=== PATIENT | male | born 1960 | race Caucasian/White ===

== ENCOUNTER 2016-09-28 12:59 | Emergency (ER) | payer SELFPAY ==
[2016-09-28 13:09] VITALS: TEMP 97.6; O2SAT 97
[2016-09-28] MEDS ORDERED: DiphenhydrAMINE 50 mg/ml Inj IVP ONE (13:12)
[2016-09-28] MEDS ORDERED: Sodium Chloride 0.9% 1,000 ML IV SCH (13:15)
--- NOTE | 2016-09-28 13:30 | ED PDOC ---
Arrival/HPI - General Chief Complaint: Allergic Reaction Time Seen by Provider: 09/28/16 13:06 Historian: Patient - History of Present Illness Narrative History of Present Illness (Text): 09/28/16 13:27 Patient is a 56 yo male, past medical history of hypertension taking Enalapril, presents to ED with itching, flushed sensation, abdominal cramping that developed 1-2 hours after taking Augmentin at 0900 this morning. He denies any known prior allergies to any food or medication. States that he had "flu symptoms" that started yesterday including cough, cold, congestion, bodyaches and he took an Augmentin pill "[place] I had from my [place]". He denies any chest pain or shortness of breath. Denies lip or tongue or facial swelling. Denies numbness or weakness. Denies headaches or visual symptoms. Denies calf pain or swelling. Time/Duration: Prior to Arrival Symptom Onset: Sudden Past Medical History - Infectious Disease Hx of Infectious Diseases: None - Cardiac Hx Hypertension: Yes - Psychiatric Hx Substance Use: No - Surgical History Hx Cholecystectomy: Yes - Anesthesia Hx Anesthesia: Yes Hx Anesthesia Reactions: No Family/Social History Family/Social History: Unknown Family HX Smoking Status: Current Some Days Smoker Hx Alcohol Use: Yes Frequency of alcohol use: Socially Hx Substance Use: No Allergies/Home Meds Allergies/Adverse Reactions: Allergies amoxicillin trihydrate [From Augmentin] Allergy (Verified 09/28/16 13:06) RASH potassium clavulanate [From Augmentin] Allergy (Verified 09/28/16 13:06) RASH Home Medications: Home Meds Medication Instructions Recorded Confirmed Enalapril Maleate [Vasotec] 10 mg PO DAILY 09/28/16 09/28/16 [id number] 1 tab PO DAILY 09/28/16 09/28/16 Review of Systems - Review of Systems Constitutional: Fatigue. absent: Fevers Eyes: absent: Vision Changes, Photophobia, Eye Pain ENT: absent: Hearing Changes, Sore Throat, Rhinorrhea, Epistaxis, Sinus Congestion Respiratory: absent: SOB, Cough, Wheezing Cardiovascular: absent: Chest Pain, Palpitations, GEE Gastrointestinal: Nausea, Other (abdominal cramping). absent: Abdominal Pain Genitourinary Male: absent: Dysuria, Frequency Musculoskeletal: absent: Back Pain Skin: Rash, Pruritis. absent: Skin Lesions Neurological: absent: Headache, Dizziness, Focal Weakness Endocrine: absent: Polyuria Hemo/Lymphatic: absent: Easy Bleeding Physical Exam - Physical Exam Narrative Physical Exam (Text): Head: Atraumatic. Normocephalic. Eyes: PERRL. EOMI. Conjunctivae are not pale. ENT: Mucous membranes are moist and intact. Oropharynx is clear and symmetric. No lip or tongue swelling, no angioedema, no drooling, no stridor. Neck: Supple. Full ROM. No JVD. No lymphadenopathy. Cardiovascular: Regular rate. Regular rhythm. No murmurs, rubs, or gallops. Distal pulses are 2+ and symmetric. Pulmonary/Chest: No evidence of respiratory distress. Clear to auscultation bilaterally. No wheezing, rales or rhonchi. Abdominal: Soft and non-distended. There is no tenderness. No rebound, guarding, or rigidity. No organomegaly. Good bowel sounds. Back: No CVA tenderness. Extremities: No edema. No cyanosis. No clubbing. Full range of motion in all extremities. No calf tenderness. Skin: Flushed skin with generalized urticaria. No streaking or vesicles. Neurological: Alert, awake, and oriented to person, place, time, and situation. Normal speech. Motor and sensory exam intact. Psychiatric: Alert, oriented. No depression. 09/28/16 13:40 Vital Signs Reviewed: Yes Vital Signs Temp Pulse Resp BP Pulse Ox 09/28/16 14:14 76 16 108/74 97 09/28/16 13:00 97.6 F 85 18 111/65 97 Temperature: Afebrile Respiratory Rate: Tachypneic Appearance: Positive for: Uncomfortable Pain Distress: Mild Mental Status: Positive for: Alert and Oriented X 3 Medical Decision Making ED Course and Treatment: Patient seen and evaluated immediately upon arrival. There is no stridor or respiratory distress. He denies any prior history of allergic reaction or anaphylaxis. On exam he has no hypotension, no abdominal pain with serial exams. He did not take any other medication prior to arrival. States he took Augmentin this am and symptoms started 1-2 hours afterwards. Given flushing, I recommended labs as he also complained of "flu type symptoms" yesterday. In ED, he is afebrile with no headache or meningeal signs. IV bendaryl, solumedrol, pepcid ordered. Patient observed in ED and on re-evaluation his rash and urticaria resolved. No angioedema or respiratory symptoms noted. Stressed to patient need to use WILMA inhibitor with caution, although symptoms today occurred after Augmentin and he has been taking his BP meds for several years. He continues to refuse blood tests. Re-exam, no fever, rash resolved, asymptomatic. Will d/c with prednisone, advised reassessment for any return of symptoms. - Lab Interpretations Lab Results: Lab Results 09/28/16 13:30: Influenza Typ A,B (EIA) Negative for flu a/b - Medication Orders Current Medication Orders: Discontinued Medications Diphenhydramine HCl (Benadryl) 25 mg IVP ONCE ONE Stop: 09/28/16 13:13 Last Admin: 09/28/16 13:19 Dose: 25 MG IVP Administration Document 09/28/16 13:19 HP (Rec: 09/28/16 13:19 [id number]) Charges for Administration # of IVP Administrations 1 Famotidine (Pepcid) 20 mg IVP STAT STA Stop: 09/28/16 13:13 Last Admin: 09/28/16 13:19 Dose: 20 MG IVP Administration Document 09/28/16 13:19 HP (Rec: 09/28/16 13:19 HP [id number]) Charges for Administration # of IVP Administrations 1 Sodium Chloride (Sodium Chloride 0.9%) 1,000 mls @ 100 mls/hr IV .Q10H ANA Last Admin: 09/28/16 13:19 Dose: 100 MLS/HR eMAR Start Stop Document 09/28/16 13:19 HP (Rec: 09/28/16 13:20 HP [id number]) Intravenous Solution Start Date 09/28/16 Start Time 13:19 End Date 09/28/16 End time 20:00 Total Infusion Time 401 Methylprednisolone (Solu-Medrol) 125 mg IVP STAT STA Stop: 09/28/16 13:13 Last Admin: 09/28/16 13:19 Dose: 125 MG IVP Administration Document 09/28/16 13:19 HP (Rec: 09/28/16 13:19 HP [id number]) Charges for Administration # of IVP Administrations 1 Disposition/Present on Arrival - Present on Arrival Any Indicators Present on Arrival: No History of DVT/PE: No History of Uncontrolled Diabetes: No Urinary Catheter: No History of Decub. Ulcer: No History Surgical Site Infection Following: None - Disposition Have Diagnosis and Disposition been Completed?: Yes Diagnosis: Allergic reaction Disposition: HOME/ ROUTINE Disposition Time: 13:45 Patient Plan: Discharge Condition: GOOD Discharge Instructions (ExitCare): Antibiotic Medication Allergy (ED), Urticaria (ED), General Allergic Reaction (ED) Additional Instructions: Be very careful taking your "WILMA inhibitor" blood pressure medication as well as antibiotic as discussed. For any headaches, any fevers, any chest pain or shortness of breath, any abdominal pain, any vomiting, any return of ANY rash or any symptoms, any wheezing or lip or facial swelling, any return of persistence of any symptoms, get rechecked immediately. Take Benadryl as needed. Take Prednisone as discussed. Follow-up with your physician in 1-2 days. Prescriptions: predniSONE [Prednisone] 60 mg PO DAILY #12 tab Referrals: PCP,NO [Primary Care Provider] - Follow up with primary
[2016-09-28 14:15] VITALS: BP 108/74; PULSE 76; RESP 16
--- NOTE | 2016-09-29 18:49 | CARD ---
APPROVED REPORT EKG Measurement Heart [id number] <Conclusion> Normal sinus rhythm with sinus arrhythmia Inferior infarct, age undetermined Abnormal ECG
== END 2016-09-28 15:22 | disposition home or self-care (01) ==
LOC: ED 12:59
DX: L50.9 Urticaria, unspecified (principal); T36.0X5A Adverse effect of penicillins, initial encounter; Y92.89 Other specified places as the place of occurrence of the external cause
CPT/HCPCS: 87804; 93005; 96361; 96374; 96375; 99283; J1200; J2930; J7040